=== PATIENT | female | born 2000 | race Caucasian/White ===

== ENCOUNTER 2018-03-30 20:43 | Emergency (ER) | payer OTHER ==
[~2018-03-30] VITALS: Ht 167.6 cm; Wt 78.0 kg
[2018-03-30] MEDS ORDERED: SERT50TA12 PO (21:12)
[2018-03-30] MEDS ORDERED: BUPR75 PO (21:12)
[2018-03-30] MEDS ORDERED: ARIP2 PO (21:12)
[2018-03-30 21:16] VITALS: BP 134/90
[2018-03-30 21:33] LABS: BASOPHILS % (AUTO) 0.4 % (0.0-2.0); EOSINOPHILS % (AUTO) 0.4 % (1.0-6.0); HEMATOCRIT 43.2 % (36-46); HEMOGLOBIN 14.4 g/dL (12.0-16.0); LYMPHOCYTES # (AUTO) 1.8 K/uL (1.0-4.8); LYMPHOCYTES % (AUTO) 21.2 % (22.0-44.0); MEAN CORPUSCULAR HEMOGLOBIN 28.6 pg (26.0-34.0); MEAN CORPUSCULAR HGB CONC 33.3 G/dL (31.0-37.0); MEAN CORPUSCULAR VOLUME 86 fL (80-100); MONOCYTES # (AUTO) 0.4 K/uL (0.1-1.0); MONOCYTES % (AUTO) 5.2 % (2.0-9.0); NEUTROPHILS # (AUTO) 6.1 K/uL (1.8-7.7); NEUTROPHILS % (AUTO) 72.8 % (40.0-70.0); PLATELET COUNT (AUTO) 372 K/uL (150-450); RED BLOOD CELL COUNT(AUTO) 5.02 MIL/uL (4.00-5.20); RED CELL DISTRIBUTION WIDTH 14.6 % (11.5-14.5)
[2018-03-30 21:38] LABS: ANION GAP 12 mmol/L (8-16); CALCIUM, TOTAL 9.5 mg/dL (8.8-10.5); CARBON DIOXIDE 24 mmol/L (22-29); CHLORIDE 103 mmol/L (98-107); CREATININE 0.92 mg/dL (0.60-1.30); GLOMERULAR FILTR. RATE CALC > 60 mL/min (>60); GLUCOSE,RANDOM 99 mg/dL (70-110); POTASSIUM 3.8 mmol/L (3.5-5.1); SODIUM SERUM 139 mmol/L (136-145); UREA NITROGEN, BLOOD 11 mg/dL (7-18)
[2018-03-30 21:47] LABS: AMPHET/METH SCREEN,URINE NEGATIVE (NEGATIVE); BARBITURATE SCREEN, URINE NEGATIVE (NEGATIVE); BENZODIAZEPINES SCREEN,URINE NEGATIVE (NEGATIVE); CANNABINOID SCREEN,URINE NEGATIVE (NEGATIVE); COCAINE SCREEN,URINE NEGATIVE (NEGATIVE); METHADONE SCREEN, URINE NEGATIVE (NEGATIVE); OPIATE SCREEN,URINE NEGATIVE (NEGATIVE)
[2018-03-30 21:48] LABS: PHENCYCLIDINE SCREEN,URINE NEGATIVE (NEGATIVE)
[2018-03-30 21:51] LABS: ALANINE AMINOTRANSFERASE 45 U/L (12-78); ALBUMIN 4.4 g/dL (3.4-5.0); ALKALINE PHOSPHATASE 106 U/L (46-116); ASPARTATE AMINOTRANSFERASE 29 U/L (15-37); BILIRUBIN,TOTAL 0.5 mg/dL (0.1-1.0); HCG,QUANTITATIVE < 1 mIU/mL (0-6); TOTAL PROTEIN, SERUM 7.9 g/dL (6.4-8.2)
== END 2018-03-30 22:28 | disposition home or self-care (01) ==
LOC: EMS 20:44
DX: F32.9 Major depressive disorder, single episode, unspecified (principal); F41.9 Anxiety disorder, unspecified
CPT/HCPCS: 36415; 80053; 80307; 84702; 85025; 99285; G0480

== ENCOUNTER 2019-05-07 19:27 | Inpatient (IN) | payer MEDICAID, OTHER ==
[~2019-05-07] VITALS: Ht 167.6 cm; Wt 57.0 kg
[~2019-05-07 19:27] MED LIST: ARIP2 PO; BUPR75 PO; SERT50TA12 PO
[2019-05-07 22:18] LABS: BASOPHILS % (AUTO) 0.3 % (0.0-2.0); EOSINOPHILS % (AUTO) 0.2 % (1.0-6.0); HEMATOCRIT 42.2 % (36-46); HEMOGLOBIN 13.8 g/dL (12.0-16.0); LYMPHOCYTES # (AUTO) 1.9 K/uL (1.0-4.8); LYMPHOCYTES % (AUTO) 23.6 % (22.0-44.0); MEAN CORPUSCULAR HEMOGLOBIN 28.9 pg (26.0-34.0); MEAN CORPUSCULAR HGB CONC 32.7 G/dL (31.0-37.0); MEAN CORPUSCULAR VOLUME 88 fL (80-100); MONOCYTES # (AUTO) 0.4 K/uL (0.1-1.0); MONOCYTES % (AUTO) 5.3 % (2.0-9.0); NEUTROPHILS # (AUTO) 5.6 K/uL (1.8-7.7); NEUTROPHILS % (AUTO) 70.6 % (40.0-70.0); PLATELET COUNT (AUTO) 256 K/uL (150-450); RED BLOOD CELL COUNT(AUTO) 4.78 MIL/uL (4.00-5.20); RED CELL DISTRIBUTION WIDTH 14.4 % (11.5-14.5)
[2019-05-07 22:48] LABS: ANION GAP 10 mmol/L (8-16); CALCIUM, TOTAL 9.7 mg/dL (8.8-10.5); CARBON DIOXIDE 27 mmol/L (22-29); CHLORIDE 105 mmol/L (98-107); CREATININE 0.81 mg/dL (0.60-1.30); GLOMERULAR FILTR. RATE CALC > 60 mL/min (>60); GLUCOSE,RANDOM 89 mg/dL (70-110); POTASSIUM 3.9 mmol/L (3.5-5.1); SODIUM SERUM 142 mmol/L (136-145); UREA NITROGEN, BLOOD 12 mg/dL (7-18)
[2019-05-07 22:54] LABS: ALANINE AMINOTRANSFERASE 17 U/L (12-78); ALBUMIN 4.2 g/dL (3.4-5.0); ALKALINE PHOSPHATASE 76 U/L (46-116); ASPARTATE AMINOTRANSFERASE 13 U/L (15-37); BILIRUBIN,TOTAL 0.6 mg/dL (0.1-1.0); TOTAL PROTEIN, SERUM 7.4 g/dL (6.4-8.2)
[2019-05-08] MEDS ORDERED: 0.9% SODIUM CHLORIDE 10 ML SYRINGE IVP PRN (01:15)
[2019-05-08] MEDS ORDERED: ACETAMINOPHEN 325 MG TABLET PO PRN ×2 (01:15→13:30)
[2019-05-08] MEDS ORDERED: ONDANSETRON HCL 4 MG/2 ML VIAL IVP PRN (01:15)
[2019-05-08] MEDS ORDERED: QUEtiapine FUMARATE 100 MG TABLET PO PRN (01:30)
[2019-05-08] MEDS ORDERED: ZOLPIDEM TARTRATE 10 MG TABLET PO PRN (01:30)
[2019-05-08] MEDS ORDERED: LORazepam 2 MG TABLET PO PRN (01:30)
[2019-05-08 04:01] VITALS: BP 112/76
[2019-05-08] MEDS ORDERED: INFLUENZA VIRUS VACCINE QVS 2019-20 (3YR+)/PF 60 MCG/0.5 ML SYRINGE IM ONE (05:30)
[2019-05-08 08:31] VITALS: BP 120/80
[2019-05-08] MEDS ORDERED: CloNIDine HCL 0.1 MG TABLET PO PRN (13:30)
[2019-05-08] MEDS ORDERED: PETROLATUM,WHITE 28 GM JELLY TP PRN (13:30)
[2019-05-08] MEDS ORDERED: ONDANSETRON HCL 4 MG TABLET PO PRN (13:30)
[2019-05-08] MEDS ORDERED: LOPERAMIDE HCL 2 MG CAPSULE PO PRN (13:30)
[2019-05-08] MEDS ORDERED: NICOTINE 14 MG/24 HOUR PATCH TD PRN (13:30)
[2019-05-08] MEDS ORDERED: MAGNESIUM HYDROXIDE SUSPENSION 30 ML UDCUP PO PRN (13:30)
[2019-05-08] MEDS ORDERED: GuaiFENesin/D-METHORPHAN [SUGAR-FREE] 200-20MG/10 ML SYRUP UDCUP PO PRN (13:30)
[2019-05-08] MEDS ORDERED: ALBUTEROL SULFATE HFA 90 MCG/PUFF 8 GM INHALER IH PRN (13:30)
[2019-05-08] MEDS ORDERED: IBUPROFEN 400 MG TABLET PO PRN (13:30)
[2019-05-08] MEDS ORDERED: DOCUSATE SODIUM 100 MG CAPSULE PO PRN (13:30)
[2019-05-08] MEDS ORDERED: MAG HYDROX/AL HYDROX/SIMETH ES 30 ML SUSPENSION UDCUP PO PRN (13:30)
[2019-05-08] MEDS: SERTRALINE HCL 50 MG TABLET PO SCH (15:31)
[2019-05-08 17:31] VITALS: BP 122/77
[2019-05-09 01:13] VITALS: BP 128/80
[2019-05-09 08:00] VITALS: BP 110/74
[2019-05-09 08:20] LABS: CHOL/HDL RATIO 2.1 (3.9-5.7)
[2019-05-09] MEDS: SERTRALINE HCL 50 MG TABLET PO SCH (08:31)
[2019-05-09 16:05] VITALS: BP 115/76
[2019-05-09] MEDS ORDERED: SERT50TA12 PO (22:39)
[2019-05-10 04:01] VITALS: BP 121/80
[2019-05-10 08:26] VITALS: BP 121/77
[2019-05-10] MEDS: SERTRALINE HCL 50 MG TABLET PO SCH (08:38)
[2019-05-10 16:26] VITALS: BP 140/91
[2019-05-16 03:01] VITALS: BP 125/81
== END 2019-05-10 18:35 | disposition home or self-care (01) | DRG 751 ==
LOC: EMS 19:27 → B3A 05-08 02:02
DX: F33.2 Major depressive disorder, recurrent severe without psychotic features (principal); R45.851 Suicidal ideations; F41.9 Anxiety disorder, unspecified; Z79.899 Other long term (current) drug therapy; Z28.21 Immunization not carried out because of patient refusal
CPT/HCPCS: G0480

== ENCOUNTER 2019-07-17 09:09 | Inpatient (IN) | payer MEDICAID ==
[~2019-07-17] VITALS: Ht 162.6 cm; Wt 53.8 kg
[~2019-07-17 09:09] MED LIST changes: -ARIP2 PO; -BUPR75 PO
[2019-07-17 12:07] VITALS: BP 104/73
[2019-07-17] MEDS ORDERED: HALOPERIDOL 5 MG TABLET PO PRN (12:15)
[2019-07-17] MEDS ORDERED: ZOLPIDEM TARTRATE 10 MG TABLET PO PRN (12:15)
[2019-07-17] MEDS ORDERED: LORazepam 2 MG TABLET PO PRN (12:15)
[2019-07-17 12:30] VITALS: BP 104/73
[2019-07-17 16:42] VITALS: BP 110/74
[2019-07-18 06:07] VITALS: BP 115/72
[2019-07-18 08:23] VITALS: BP 102/60
[2019-07-18 08:26] LABS: BASOPHILS % (AUTO) 0.5 % (0.0-2.0); EOSINOPHILS % (AUTO) 1.9 % (1.0-6.0); HEMATOCRIT 39.9 % (36-46); HEMOGLOBIN 13.1 g/dL (12.0-16.0); LYMPHOCYTES # (AUTO) 2.3 K/uL (1.0-4.8); LYMPHOCYTES % (AUTO) 48.9 % (22.0-44.0); MEAN CORPUSCULAR HEMOGLOBIN 29.3 pg (26.0-34.0); MEAN CORPUSCULAR HGB CONC 32.9 G/dL (31.0-37.0); MEAN CORPUSCULAR VOLUME 89 fL (80-100); MONOCYTES # (AUTO) 0.3 K/uL (0.1-1.0); MONOCYTES % (AUTO) 5.8 % (2.0-9.0); NEUTROPHILS % (AUTO) 42.9 % (40.0-70.0); PLATELET COUNT (AUTO) 222 K/uL (150-450); RED BLOOD CELL COUNT(AUTO) 4.48 MIL/uL (4.00-5.20)
[2019-07-18 09:41] LABS: ALANINE AMINOTRANSFERASE 19 U/L (12-78); ALBUMIN 4.2 g/dL (3.4-5.0); ALKALINE PHOSPHATASE 75 U/L (46-116); ANION GAP 8 mmol/L (8-16); ASPARTATE AMINOTRANSFERASE 12 U/L (15-37); BILIRUBIN,TOTAL 0.5 mg/dL (0.1-1.0); CALCIUM, TOTAL 9.4 mg/dL (8.8-10.5); CARBON DIOXIDE 27 mmol/L (22-29); CHLORIDE 108 mmol/L (98-107); CREATININE 0.82 mg/dL (0.60-1.30); GLOMERULAR FILTR. RATE CALC > 60 mL/min (>60); GLUCOSE,RANDOM 82 mg/dL (70-110); HCG,QUANTITATIVE < 1 mIU/mL (0-6); POTASSIUM 4.3 mmol/L (3.5-5.1); SODIUM SERUM 143 mmol/L (136-145); TOTAL PROTEIN, SERUM 6.7 g/dL (6.4-8.2); UREA NITROGEN, BLOOD 14 mg/dL (7-18)
[2019-07-18 16:13] VITALS: BP 113/84
[2019-07-19 04:14] VITALS: BP 127/72
[2019-07-19 08:31] VITALS: BP 100/59
[2019-07-19] MEDS: SERTRALINE HCL 50 MG TABLET PO SCH (08:33)
[2019-07-19 16:18] VITALS: BP 100/69
[2019-07-20 03:21] VITALS: BP 102/76
[2019-07-20 08:28] VITALS: BP 102/71
[2019-07-20] MEDS: SERTRALINE HCL 50 MG TABLET PO SCH (08:42)
[2019-07-20 16:30] VITALS: BP 105/72
[2019-07-21 06:04] VITALS: BP 102/63
[2019-07-21 08:24] VITALS: BP 100/64
[2019-07-21] MEDS: SERTRALINE HCL 50 MG TABLET PO SCH (08:39)
[2019-07-21 16:25] VITALS: BP 100/66
[2019-07-22 06:21] VITALS: BP 103/65
[2019-07-22] MEDS: SERTRALINE HCL 50 MG TABLET PO SCH (08:04)
[2019-07-22 08:13] VITALS: BP 101/62
[2019-07-22 17:25] VITALS: BP 107/72
[2019-07-23 04:39] VITALS: BP 98/74
[2019-07-23] MEDS: SERTRALINE HCL 50 MG TABLET PO SCH (08:09)
[2019-07-23 08:26] VITALS: BP 114/76
[2019-07-23 16:19] VITALS: BP 110/71
== END 2019-07-23 20:00 | disposition home or self-care (01) | DRG 754 ==
LOC: B3A 12:13
PROVIDERS: ADMIT Psychiatry & Neurology Psychiatry; ATTEND Psychiatry & Neurology Psychiatry
DX: F32.9 Major depressive disorder, single episode, unspecified (principal); R45.851 Suicidal ideations; K21.9 Gastro-esophageal reflux disease without esophagitis

== ENCOUNTER 2019-08-09 14:24 | Inpatient (IN) | payer MEDICAID, OTHER ==
[~2019-08-09] VITALS: Ht 167.6 cm; Wt 52.2 kg
[2019-08-09 15:37] LABS: BASOPHILS % (AUTO) 0.5 % (0.0-2.0); EOSINOPHILS % (AUTO) 1.6 % (1.0-6.0); HEMATOCRIT 37.9 % (36-46); HEMOGLOBIN 12.3 g/dL (12.0-16.0); LYMPHOCYTES # (AUTO) 2.2 K/uL (1.0-4.8); LYMPHOCYTES % (AUTO) 40.9 % (22.0-44.0); MEAN CORPUSCULAR HEMOGLOBIN 28.7 pg (26.0-34.0); MEAN CORPUSCULAR HGB CONC 32.3 G/dL (31.0-37.0); MEAN CORPUSCULAR VOLUME 89 fL (80-100); MONOCYTES # (AUTO) 0.4 K/uL (0.1-1.0); MONOCYTES % (AUTO) 7.9 % (2.0-9.0); NEUTROPHILS # (AUTO) 2.6 K/uL (1.8-7.7); NEUTROPHILS % (AUTO) 49.1 % (40.0-70.0); PLATELET COUNT (AUTO) 211 K/uL (150-450); RED BLOOD CELL COUNT(AUTO) 4.26 MIL/uL (4.00-5.20); RED CELL DISTRIBUTION WIDTH 15.1 % (11.5-14.5)
[2019-08-09 15:46] LABS: ANION GAP 9 mmol/L (8-16); CALCIUM, TOTAL 9.2 mg/dL (8.8-10.5); CARBON DIOXIDE 27 mmol/L (22-29); CHLORIDE 109 mmol/L (98-107); CREATININE 0.65 mg/dL (0.60-1.30); GLOMERULAR FILTR. RATE CALC > 60 mL/min (>60); GLUCOSE,RANDOM 93 mg/dL (70-110); POTASSIUM 3.5 mmol/L (3.5-5.1); SODIUM SERUM 145 mmol/L (136-145); UREA NITROGEN, BLOOD 16 mg/dL (7-18)
[2019-08-09 15:52] LABS: ALANINE AMINOTRANSFERASE 16 U/L (12-78); ALBUMIN 4.2 g/dL (3.4-5.0); ALKALINE PHOSPHATASE 77 U/L (46-116); ASPARTATE AMINOTRANSFERASE 9 U/L (15-37); BILIRUBIN,TOTAL 0.4 mg/dL (0.1-1.0)
[2019-08-09 16:02] LABS: TOTAL PROTEIN, SERUM 7.1 g/dL (6.4-8.2)
[2019-08-09] MEDS ORDERED: PERTUSS(ACELL),DIPH,TET VAC/PF 0.5 ML VIAL IM ONE (19:00)
[2019-08-09 20:31] LABS: SALICYLATE 0.5 mg/dL (2.8-20.0)
[2019-08-09 20:42] LABS: ACETAMINOPHEN < 2 mcg/mL (10-30); HCG,QUANTITATIVE < 1 mIU/mL (0-6)
[2019-08-09] MEDS ORDERED: ONDANSETRON HCL 4 MG/2 ML VIAL IVP PRN (20:45)
[2019-08-09] MEDS ORDERED: ACETAMINOPHEN 325 MG TABLET PO PRN ×2 (20:45→22:45)
[2019-08-09] MEDS ORDERED: 0.9% SODIUM CHLORIDE 10 ML SYRINGE IVP PRN (20:45)
[2019-08-09 22:23] VITALS: BP 137/85
[2019-08-09 22:42] VITALS: BP 137/85
[2019-08-09] MEDS ORDERED: MAG HYDROX/AL HYDROX/SIMETH ES 30 ML SUSPENSION UDCUP PO PRN (22:45)
[2019-08-09] MEDS ORDERED: OMEPRAZOLE 20 MG CAPSULE PO PRN (22:45)
[2019-08-09] MEDS ORDERED: IBUPROFEN 600 MG TABLET PO PRN (22:45)
[2019-08-09] MEDS ORDERED: ONDANSETRON HCL 4 MG TABLET PO PRN (22:45)
[2019-08-09] MEDS ORDERED: MAGNESIUM HYDROXIDE SUSPENSION 30 ML UDCUP PO PRN (22:45)
[2019-08-09] MEDS ORDERED: BENZOCAINE/MENTHOL LOZENGE MM PRN (22:45)
[2019-08-09] MEDS ORDERED: DOCUSATE SODIUM 100 MG CAPSULE PO PRN (22:45)
[2019-08-09] MEDS ORDERED: ALBUTEROL SULFATE HFA 90 MCG/PUFF 8 GM INHALER IH PRN (22:45)
[2019-08-09] MEDS ORDERED: PETROLATUM,WHITE 28 GM JELLY TP PRN (22:45)
[2019-08-09] MEDS ORDERED: BACITRACIN 28.4 GM OINTMENT TP PRN (22:45)
[2019-08-09] MEDS ORDERED: CloNIDine HCL 0.1 MG TABLET PO PRN (22:45)
[2019-08-09] MEDS ORDERED: LOPERAMIDE HCL 2 MG CAPSULE PO PRN (22:45)
[2019-08-09] MEDS ORDERED: HALOPERIDOL 5 MG TABLET PO PRN (23:30)
[2019-08-09] MEDS ORDERED: ZOLPIDEM TARTRATE 10 MG TABLET PO PRN (23:30)
[2019-08-09] MEDS ORDERED: LORazepam 2 MG TABLET PO PRN (23:30)
[2019-08-10 03:08] VITALS: BP 130/78
[2019-08-10 08:31] VITALS: BP 115/75
[2019-08-10] MEDS: BACITRACIN 28.4 GM OINTMENT TP SCH ×2 (08:31→16:33)
[2019-08-10] MEDS: SERTRALINE HCL 50 MG TABLET PO SCH (14:44)
[2019-08-10 16:49] VITALS: BP 123/77
[2019-08-10] MEDS: RisperiDONE 1 MG TABLET PO SCH (20:05)
[2019-08-11 07:44] LABS: CHOL/HDL RATIO 2.2 (3.9-5.7); PHOSPHORUS 4.7 mg/dL (2.5-4.9)
[2019-08-11] MEDS: MULTIVITAMINS WITH MINERALS, THERAPEUTIC TABLET PO SCH (08:24)
[2019-08-11] MEDS: SERTRALINE HCL 50 MG TABLET PO SCH (08:24)
[2019-08-11 08:41] VITALS: BP 91/63
[2019-08-11] MEDS: BACITRACIN 28.4 GM OINTMENT TP SCH ×2 (11:31→16:01)
[2019-08-11 17:05] VITALS: BP 102/71
[2019-08-11] MEDS: RisperiDONE 1 MG TABLET PO SCH (20:06)
[2019-08-12 08:00] VITALS: BP 98/60
[2019-08-12] MEDS: MULTIVITAMINS WITH MINERALS, THERAPEUTIC TABLET PO SCH (08:01)
[2019-08-12] MEDS: SERTRALINE HCL 50 MG TABLET PO SCH (08:01)
[2019-08-12] MEDS: BACITRACIN 28.4 GM OINTMENT TP SCH ×2 (08:01→16:11)
[2019-08-12 18:16] VITALS: BP 95/58
[2019-08-12] MEDS: RisperiDONE 1 MG TABLET PO SCH (20:02)
[2019-08-13] MEDS: MULTIVITAMINS WITH MINERALS, THERAPEUTIC TABLET PO SCH (08:08)
[2019-08-13] MEDS: SERTRALINE HCL 50 MG TABLET PO SCH (08:08)
[2019-08-13] MEDS: BACITRACIN 28.4 GM OINTMENT TP SCH ×2 (08:13→16:03)
[2019-08-13 08:34] VITALS: BP 92/63
[2019-08-13 16:00] VITALS: BP 103/61
[2019-08-13] MEDS: RisperiDONE 1 MG TABLET PO SCH (20:00)
[2019-08-14] MEDS: SERTRALINE HCL 50 MG TABLET PO SCH (08:22)
[2019-08-14] MEDS: MULTIVITAMINS WITH MINERALS, THERAPEUTIC TABLET PO SCH (08:22)
[2019-08-14] MEDS: BACITRACIN 28.4 GM OINTMENT TP SCH ×2 (08:23→16:11)
[2019-08-14 09:41] VITALS: BP 101/58
[2019-08-14] MEDS ORDERED: RISP.5 PO (12:21)
[2019-08-14] MEDS ORDERED: [UNRECOGNIZED DRUG - CODE] TP (12:25)
[2019-08-14] MEDS ORDERED: MULT-1239 PO (12:28)
== END 2019-08-14 16:55 | disposition home or self-care (01) | DRG 885 ==
LOC: EMS 14:26 → 3EI 20:53
PROVIDERS: ADMIT Psychiatry & Neurology Psychiatry; ATTEND Psychiatry & Neurology Psychiatry
DX: F33.3 Major depressive disorder, recurrent, severe with psychotic symptoms (principal); R45.851 Suicidal ideations; F41.9 Anxiety disorder, unspecified; K59.00 Constipation, unspecified; G47.00 Insomnia, unspecified
CPT/HCPCS: 70450; 83735; 84100; 87081; 90715; G0480; G0481

== ENCOUNTER 2020-04-09 12:12 | Inpatient (IN) | payer MEDICAID, OTHER ==
[~2020-04-09] VITALS: Ht 165.1 cm; Wt 55.8 kg
[~2020-04-09 12:12] MED LIST changes: +MULT-1239 PO; +RISP0.5T39 PO
[2020-04-09] MEDS ORDERED: ZIPR40CA2 PO (12:43)
[2020-04-09 14:18] LABS: BASOPHILS % (AUTO) 0.2 % (0.0-2.0); EOSINOPHILS % (AUTO) 0.8 % (1.0-6.0); HEMATOCRIT 39.7 % (36-46); LYMPHOCYTES # (AUTO) 1.3 K/uL (1.0-4.8); LYMPHOCYTES % (AUTO) 26.4 % (22.0-44.0); MEAN CORPUSCULAR HEMOGLOBIN 28.5 pg (26.0-34.0); MEAN CORPUSCULAR HGB CONC 32.7 G/dL (31.0-37.0); MEAN CORPUSCULAR VOLUME 87 fL (80-100); MONOCYTES # (AUTO) 0.3 K/uL (0.1-1.0); MONOCYTES % (AUTO) 6.3 % (2.0-9.0); NEUTROPHILS # (AUTO) 3.4 K/uL (1.8-7.7); NEUTROPHILS % (AUTO) 66.3 % (40.0-70.0); PLATELET COUNT (AUTO) 258 K/uL (150-450); RED BLOOD CELL COUNT(AUTO) 4.56 MIL/uL (4.00-5.20); RED CELL DISTRIBUTION WIDTH 15.1 % (11.5-14.5)
[2020-04-09 14:21] LABS: ANION GAP 11 mmol/L (8-16); CALCIUM, TOTAL 9.1 mg/dL (8.8-10.5); CARBON DIOXIDE 26 mmol/L (22-29); CHLORIDE 102 mmol/L (98-107); GLOMERULAR FILTR. RATE CALC > 60 mL/min (>60); GLUCOSE,RANDOM 79 mg/dL (70-110); POTASSIUM 3.9 mmol/L (3.5-5.1); SODIUM SERUM 139 mmol/L (136-145); UREA NITROGEN, BLOOD 15 mg/dL (7-18)
[2020-04-09 14:34] LABS: ALANINE AMINOTRANSFERASE 15 U/L (12-78); ALBUMIN 4.4 g/dL (3.4-5.0); ALKALINE PHOSPHATASE 79 U/L (46-116); ASPARTATE AMINOTRANSFERASE 11 U/L (15-37); BILIRUBIN,TOTAL 0.5 mg/dL (0.1-1.0); HCG,QUANTITATIVE < 1 mIU/mL (0-6); TOTAL PROTEIN, SERUM 7.8 g/dL (6.4-8.2)
[2020-04-09 15:47] LABS: COVID AG,FIA SOURCE NASOPHARYNGEAL
[2020-04-09 16:13] LABS: AMPHET/METH SCREEN,URINE NEGATIVE (NEGATIVE); BARBITURATE SCREEN, URINE NEGATIVE (NEGATIVE); BENZODIAZEPINES SCREEN,URINE NEGATIVE (NEGATIVE); CANNABINOID SCREEN,URINE NEGATIVE (NEGATIVE); COCAINE SCREEN,URINE NEGATIVE (NEGATIVE); METHADONE SCREEN, URINE NEGATIVE (NEGATIVE); OPIATE SCREEN,URINE NEGATIVE (NEGATIVE)
[2020-04-09 16:20] LABS: PHENCYCLIDINE SCREEN,URINE NEGATIVE (NEGATIVE)
[2020-04-09] MEDS ORDERED: HALOPERIDOL 5 MG TABLET PO PRN (19:00)
[2020-04-09] MEDS ORDERED: LORazepam 2 MG TABLET PO PRN (19:00)
[2020-04-09] MEDS ORDERED: ZOLPIDEM TARTRATE 10 MG TABLET PO PRN (19:00)
[2020-04-10 00:24] VITALS: BP 120/78
[2020-04-10] MEDS ORDERED: ACETAMINOPHEN 325 MG TABLET PO PRN (07:30)
[2020-04-10] MEDS ORDERED: NICOTINE 14 MG/24 HOUR PATCH TD PRN (07:30)
[2020-04-10] MEDS ORDERED: DOCUSATE SODIUM 100 MG CAPSULE PO PRN (07:30)
[2020-04-10] MEDS ORDERED: GuaiFENesin/D-METHORPHAN [SUGAR-FREE] 200-20MG/10 ML SYRUP UDCUP PO PRN (07:30)
[2020-04-10] MEDS ORDERED: IBUPROFEN 400 MG TABLET PO PRN (07:30)
[2020-04-10] MEDS ORDERED: MAG HYDROX/AL HYDROX/SIMETH ES 30 ML SUSPENSION UDCUP PO PRN (07:30)
[2020-04-10] MEDS ORDERED: PETROLATUM,WHITE 28 GM JELLY TP PRN (07:30)
[2020-04-10] MEDS ORDERED: MAGNESIUM HYDROXIDE SUSPENSION 30 ML UDCUP PO PRN (07:30)
[2020-04-10] MEDS ORDERED: LOPERAMIDE HCL 2 MG CAPSULE PO PRN (07:30)
[2020-04-10] MEDS ORDERED: ONDANSETRON HCL 4 MG TABLET PO PRN (07:30)
[2020-04-10] MEDS ORDERED: ALBUTEROL SULFATE HFA 90 MCG/PUFF 8 GM INHALER IH PRN (07:30)
[2020-04-10] MEDS ORDERED: CloNIDine HCL 0.1 MG TABLET PO PRN (07:30)
[2020-04-10 08:19] LABS: BASOPHILS % (AUTO) 0.4 % (0.0-2.0); EOSINOPHILS % (AUTO) 0.8 % (1.0-6.0); HEMATOCRIT 37.7 % (36-46); HEMOGLOBIN 12.3 g/dL (12.0-16.0); LYMPHOCYTES # (AUTO) 1.8 K/uL (1.0-4.8); LYMPHOCYTES % (AUTO) 36.6 % (22.0-44.0); MEAN CORPUSCULAR HEMOGLOBIN 28.4 pg (26.0-34.0); MEAN CORPUSCULAR HGB CONC 32.6 G/dL (31.0-37.0); MEAN CORPUSCULAR VOLUME 87 fL (80-100); MONOCYTES # (AUTO) 0.3 K/uL (0.1-1.0); MONOCYTES % (AUTO) 6.9 % (2.0-9.0); NEUTROPHILS # (AUTO) 2.7 K/uL (1.8-7.7); NEUTROPHILS % (AUTO) 55.3 % (40.0-70.0); PLATELET COUNT (AUTO) 249 K/uL (150-450); RED BLOOD CELL COUNT(AUTO) 4.32 MIL/uL (4.00-5.20); RED CELL DISTRIBUTION WIDTH 15.1 % (11.5-14.5)
[2020-04-10 08:31] VITALS: BP 103/69
[2020-04-10 09:03] LABS: ALANINE AMINOTRANSFERASE 15 U/L (12-78); ALBUMIN 4.2 g/dL (3.4-5.0); ALKALINE PHOSPHATASE 63 U/L (46-116); ANION GAP 11 mmol/L (8-16); ASPARTATE AMINOTRANSFERASE 11 U/L (15-37); BILIRUBIN,TOTAL 0.7 mg/dL (0.1-1.0); CARBON DIOXIDE 24 mmol/L (22-29); CHLORIDE 103 mmol/L (98-107); CHOL/HDL RATIO 1.9 (3.9-5.7); CHOLESTEROL 118 mg/dL (131-200); CREATININE 0.75 mg/dL (0.60-1.30); FREE T4 (FREE THYROXINE) 1.22 ng/dL (0.76-1.46); GLOMERULAR FILTR. RATE CALC > 60 mL/min (>60); GLUCOSE,RANDOM 83 mg/dL (70-110); HCG,QUANTITATIVE < 1 mIU/mL (0-6); HDL CHOLESTEROL 61 mg/dL (40-60); LDL CHOL (CALC.) 49 mg/dL (0-130); POTASSIUM 3.8 mmol/L (3.5-5.1); SODIUM SERUM 138 mmol/L (136-145); THYROID STIMULATING HORMONE 1.73 uIU/mL (0.36-3.74); TOTAL PROTEIN, SERUM 7.2 g/dL (6.4-8.2); TRIGLYCERIDES 41 mg/dL (15-150); UREA NITROGEN, BLOOD 14 mg/dL (7-18)
[2020-04-10] MEDS: ZIPRASIDONE HCL 40 MG CAPSULE PO SCH (16:00)
[2020-04-10 16:03] VITALS: BP 108/70
[2020-04-11 03:14] VITALS: BP 102/67
[2020-04-11] MEDS: ZIPRASIDONE HCL 40 MG CAPSULE PO SCH ×2 (06:53→16:48)
[2020-04-11] MEDS: SERTRALINE HCL 50 MG TABLET PO SCH (08:05)
[2020-04-11 10:46] VITALS: BP 104/62
[2020-04-11 16:04] VITALS: BP 100/60
[2020-04-11] MEDS: BACITRACIN 28 GM OINTMENT TP SCH (16:48)
[2020-04-12] MEDS: ZIPRASIDONE HCL 40 MG CAPSULE PO SCH ×2 (06:34→16:06)
[2020-04-12] MEDS: SERTRALINE HCL 50 MG TABLET PO SCH (08:09)
[2020-04-12 08:30] VITALS: BP 106/62
[2020-04-12] MEDS: BACITRACIN 28 GM OINTMENT TP SCH ×2 (09:49→16:06)
[2020-04-12 16:07] VITALS: BP 123/84
[2020-04-13 01:18] VITALS: BP 100/63
[2020-04-13] MEDS: ZIPRASIDONE HCL 40 MG CAPSULE PO SCH (06:45)
[2020-04-13 08:25] VITALS: BP 112/76
[2020-04-13 08:39] VITALS: BP 150/81
[2020-04-13] MEDS ORDERED: ZIPR40CA2 PO (09:22)
[2020-04-13] MEDS ORDERED: SERT50TA12 PO (09:23)
[2020-04-13] MEDS: SERTRALINE HCL 50 MG TABLET PO SCH (10:25)
[2020-04-13] MEDS: BACITRACIN 28 GM OINTMENT TP SCH (10:25)
== END 2020-04-13 14:30 | disposition home or self-care (01) | DRG 751 ==
LOC: EMS 12:29 → B2S 16:09
PROVIDERS: ADMIT Psychiatry & Neurology Psychiatry; ATTEND Psychiatry & Neurology Psychiatry
DX: F33.2 Major depressive disorder, recurrent severe without psychotic features (principal); R45.851 Suicidal ideations; Z20.822 Contact with and (suspected) exposure to COVID-19; F06.4 Anxiety disorder due to known physiological condition; F25.9 Schizoaffective disorder, unspecified; G44.209 Tension-type headache, unspecified, not intractable; K59.00 Constipation, unspecified; Z91.5 Personal history of self-harm; Z79.899 Other long term (current) drug therapy
CPT/HCPCS: 83036; 84439; 84443; 87426; G0480